=== PATIENT | female | born 1945 | race Caucasian/White ===

== ENCOUNTER 2021-01-13 18:53 | Emergency (ER) | payer MEDICARE, SELFPAY ==
[2021-01-13] VITALS (8 sets, daily range): BP systolic 154–175; BP diastolic 55–68; PULSE 83–93; RESP 18–22; TEMP 37.2; O2SAT 98–100
--- NOTE | ~2021-01-13 | XR_ITS ---
EXAMINATION: XR knee LT min 4V DATE: 01/13/2021 19:52 INDICATION: Left knee pain TECHNIQUE: Five views of the left knee were obtained. COMPARISON: None. FINDINGS: The bones are osteopenic which limits the sensitivity for fracture however none is seen. Th ere is moderate joint space narrowing of the medial compartment No joint effusion/synovitis. Calcifi ed atherosclerosis is noted. IMPRESSION: 1. No acute osseous abnormality, sensitivity limited by osteopenia. Reviewed, dictated and finalized at location A.
--- NOTE | ~2021-01-13 | CT_ITS ---
EXAMINATION: CT cervical spine wo con DATE: 01/14/2021 00:21 INDICATION: Head injury. TECHNIQUE: Computed tomography (CT) of the cervical spine was performed without intravenous contrast. Automated exposure control and iterative reconstruction technique were employed. The dose-length pro duct was 344.15 mGy-cm. COMPARISON: None FINDINGS: There is 3 degrees levocurvature of cervical spine. Vertebral body heights and intervertebr al disc heights are normal. There is a small right pleural effusion versus pleural thickening. The fo llowing disc levels are specifically discussed: C2-C3: There is no uncovertebral joint osteoarthritis. There is mild right and severe left facet join t osteoarthritis. There is no neural foraminal stenosis. There is no central canal stenosis. C3-C4: There is no uncovertebral joint osteoarthritis. There is mild right and moderate left facet azucena int osteoarthritis. There is no neural foraminal stenosis. There is no central canal stenosis. C4-C5: There is no uncovertebral joint osteoarthritis. There is moderate right facet joint osteoarthr itis. There is no neural foraminal stenosis. There is no central canal stenosis. C5-C6: There is no uncovertebral joint osteoarthritis. There is severe right facet joint osteoarthrit is. There is no neural foraminal stenosis. There is no central canal stenosis. C6-C7: There is no uncovertebral joint osteoarthritis. There is mild right facet joint osteoarthritis . There is no neural foraminal stenosis. There is no central canal stenosis. C7-T1: There is no uncovertebral joint osteoarthritis. There is mild bilateral facet joint osteoarthr itis. There is no neural foraminal stenosis. There is no central canal stenosis. IMPRESSION: 1. No fracture. 2. Multilevel facet joint osteoarthritis. Reviewed, dictated and finalized at location A.
--- NOTE | ~2021-01-13 | XR_ITS ---
EXAMINATION: XR chest 1V portable INDICATION: Cough TECHNIQUE: Portable AP chest at 2305 hours COMPARISON: None available FINDINGS: There are opacities of the mid and lower lung zones. No pleural effusion or pneumothorax is identified. The heart size is upper limits of normal for technique. Internal stabilization hardware is present in the proximal left humerus. IMPRESSION: 1. Opacities of the mid and lower lung zones which could reflect atelectasis/scarring versus pneumoni a. Recommend followup radiographs in 10-14 days after appropriate therapy to evaluate for improvement /resolution. Reviewed, dictated and finalized at location A. IMPRESSION: 1. Opacities of the mid and lower lung zones which could reflect atelectasis/sc arring versus pneumonia. Recommend followup radiographs in 10-14 days after joey ropriate therapy to evaluate for improvement/resolution.
--- NOTE | ~2021-01-13 | CT_ITS ---
EXAMINATION: CT brain wo con DATE: 01/14/2021 00:20 INDICATION: Head injury. TECHNIQUE: Computed tomography (CT) of the head was performed without intravenous contrast. The mA wa s adjusted according to patient size. Iterative reconstruction technique was employed. The dose-lengt h product was 605.33 mGy-cm. COMPARISON: None FINDINGS: There is an old infarct in right frontal lobe. There is an old infarct in left caudate nucl eus. There are scattered areas of low attenuation in the cerebral white matter, which is within rajendra l limits for the patient's age. There is no intracranial hemorrhage, acute infarction, or abnormal i ntracranial mass lesion. The ventricles are normal in size. There are likely changes of left ocular l ens replacement surgery. The paranasal sinuses are clear. The mastoid air cells are normal. IMPRESSION: 1. 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 Reviewed, dictated and finalized at location A.
--- NOTE | 2021-01-13 23:06 | ED.GENADULT ---
HPI - General Adult General Chief complaint: Fall Stated complaint: fall/head injury Time Seen by Provider: 01/13/21 22:50 Source: patient History of Present Illness HPI narrative: Patient is a 75 y/o female sent from [place] for a fall. She states that she attempted to push a dinner tray away and fell forward on her knees. She has some mild left knee pain. There no alleviating or exacerbating factor. There is no pain radiation. She also hit her head on the bed. She has no headache or LOC. She has no neck pain, back pain or abdominal pain. Of note, she states that she has had a dry cough for 2 weeks. She states that she was tested for COVID recently and the result was negative. Review of Systems Constitutional: Constitutional: Denies chills, Denies fever(s), Denies headache(s) and Denies weakness Eyes: Eyes: Denies blurry vision ENT: Denies headache(s) and Denies neck pain Cardiovascular: Cardiovascular: Denies chest pain and Denies dyspnea Respiratory: Respiratory: Reports cough and Denies dyspnea Gastrointestinal: Gastrointestinal: Denies abdominal pain, Denies diarrhea, Denies nausea and Denies vomiting Genitourinary: Genitourinary: Denies hematuria and Denies dysuria Musculoskeletal: Musculoskeletal: Reports as per HPI, Denies back pain, Reports arthralgias (left knee pain) and Denies neck pain Neurologic: Denies headache(s) and Denies weakness Exam Const: General: no acute distress and well developed Orientation/consciousness: oriented to person, oriented to place, oriented to time and patient oriented x3 HENMT: Head: normocephalic Ears: external ears normal General nose exam: Normal external nose present Eyes: General: appearance normal, both eyes and all related structures Conjunctivae: conjunctivae normal Neck: Neck: normal visual inspection and full ROM Chest: Chest palpation & inspection: normal inspection of the chest and no tenderness Resp: Effort & Inspection: normal respiratory effort Auscultation: clear to auscultation bilaterally Cardio: Rate: regular rate Rhythm: regular rhythm GI: GI Palp: No abdominal tenderness and Yes Soft to palpation Skin: General skin exam: normal color and turgor normal Neuro: General: oriented to person, oriented to place, oriented to time and patient oriented x3 Cognition (Neuro): normal cognition Extrem: General: normal to inspection, full ROM and no pedal edema Psych: Appearance: grossly normal Mental Status: mental status grossly normal Affect: normal affect Course Reevaluation(s) Reevaluation #1: Discussed with patient about lab and rad results. 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 Offered patient admission for IV antibiotics for pneumonia. Patient declines and wants to be discharged. Date: 01/14/21 Time: 01:23 Vital Signs Vital signs: Vital Signs Temperature 37.2 C 01/13/21 19:15 Pulse Rate 92 01/13/21 19:15 Respiratory Rate 20 01/13/21 19:15 Blood Pressure 175/64 H 01/13/21 19:15 Pulse Oximetry 99 01/13/21 19:15 Temperature 37.2 C 01/13/21 19:15 Pulse Rate 81 01/14/21 00:45 Respiratory Rate 20 01/14/21 00:45 Blood Pressure 155/54 H 01/14/21 00:45 Pulse Oximetry 99 01/14/21 00:45 Medical Decision Making Vital Signs Vital Signs: Vital Signs Temperature 37.2 C 01/13/21 19:15 Pulse Rate 92 01/13/21 19:15 Respiratory Rate 20 01/13/21 19:15 Blood Pressure 175/64 H 01/13/21 19:15 Pulse Oximetry 99 01/13/21 19:15 Temperature 37.2 C 01/13/21 19:15 Pulse Rate 81 01/14/21 00:45 Respiratory Rate 20 01/14/21 00:45 Blood Pressure 155/54 H 01/14/21 00:45 Pulse Oximetry 99 01/14/21 00:45 Lab Data Result diagrams: 01/13/21 23:24 01/13/21 23:24 Labs: Lab Results 01/13/21 01/13/21 Range/Units 23:24 23:24 WBC 19.5 H (4.5-10.0) K/mm3 RBC 3.46 L (4.2-5.4) M/mm3 Hgb 9.5 L (12.0-15.0) g/dL Hct 30.9 L (37.0-47.0) % MCV
[2021-01-13 23:32] LABS: Basophils Absolute Auto 0.1 K/mm3 (0.0-0.1); Basophils Percent Auto 0.3 % (0.2-1.2); Eosinophils Absolute Auto 0.1 K/mm3 (0-0.3); Eosinophils Percent Auto 0.7 % (0-4.4); Hematocrit 30.9 % (37.0-47.0); Hemoglobin 9.5 g/dL (12.0-15.0); Immature Granulocyte Absolute 0.07 K/mm3 (0.00-0.031); Immature Granulocyte Percent A 0.4 % (0-0.5); Lymphocytes Absolute Auto 14.38 K/mm3 (0.9-3.2); Lymphocytes Percent Auto 73.6 % (18.3-44.2); Mean Corpuscular HGB Conc 30.7 g/dl (32-36); Mean Corpuscular Hemoglobin 27.5 pg (26-34); Mean Corpuscular Volume 89.3 fl (80-100); Mean Platelet Volume 9.5 fl (7.4-10.4); Monocytes Absolute Auto 0.7 K/mm3 (0.1-0.6); Monocytes Percent Auto 3.4 % (2.6-8.5); Neutrophils Absolute Auto 4.2 K/mm3 (1.3-6.7); Neutrophils Percent Auto 21.6 % (45.5-73.1); Platelet Count Result 328 k/mm3 (150-375); Red Blood Count 3.46 M/mm3 (4.2-5.4); Red Cell Distribution Width 17.6 % (11.5-14.5); White Blood Count 19.5 K/mm3 (4.5-10.0)
[2021-01-13 23:44] LABS: Alanine Aminotransferase 11 U/L (4-35); Albumin Level 3.2 g/dL (3.5-5.1); Alkaline Phosphatase 115 U/L (38-126); Anion Gap 3 mmol/L (8-16); Aspartate Amino Transferase 20 U/L (14-36); Bilirubin,Total 0.4 mg/dL (0.2-1.3); Blood Urea Nitrogen 12 mg/dL (7-17); Calcium 8.3 mg/dL (8.4-10.2); Carbon Dioxide 27 mmol/L (22-30); Chloride 99 mmol/L (98-107); Estimated CRCL calculation 45 ml/min; Estimated Glomerular Filt Rate 54; Glucose 148 mg/dL (65-110); Potassium 4.7 mmol/L (3.4-5.0); Sodium 129 mmol/L (137-145)
[2021-01-14 00:19] VITALS: RESP 21; O2SAT 96
[2021-01-14 00:30] VITALS: O2SAT 98
[2021-01-14 00:45] VITALS: BP 155/54; PULSE 81; RESP 20; O2SAT 99
--- NOTE | 2021-01-14 01:59 | PC.NURSE ---
called [facility] to request transport. ETA one hour.
[2021-01-14 03:14] VITALS: BP 154/78; PULSE 74; RESP 18; O2SAT 99
== END 2021-01-14 04:56 ==
PROVIDERS: Emergency Provider Emergency Medicine
DX: M25.562 Pain in left knee (principal); J18.9 Pneumonia, unspecified organism; W19.XXXA Unspecified fall, initial encounter; C91.10 Chronic lymphocytic leukemia of B-cell type not having achieved remission; M85.862 Other specified disorders of bone density and structure, left lower leg; M47.812 Spondylosis without myelopathy or radiculopathy, cervical region
CPT/HCPCS: 36415; 70450; 71045; 72125; 73564; 80053; 85025; 99284

== ENCOUNTER 2023-01-09 05:57 | Inpatient (IN) | payer MEDICARE, SELFPAY ==
[2023-01-09] VITALS (38 sets, daily range): BP systolic 120–208; BP diastolic 51–86; PULSE 80–96; RESP 16–28; TEMP 36.4–36.8; O2SAT 94–100; BMI 29.2
--- NOTE | ~2023-01-09 | XR_ITS ---
EXAMINATION: XR chest 1V portable DATE: 01/10/2023 08:07 INDICATION: Airspace opacities. TECHNIQUE: A single frontal view of the chest was obtained. COMPARISON: Chest single view 01/09/2023 FINDINGS: There are peripheral airspace opacities in the mid and lower lung zones. No pleural effusio n or pneumothorax. The heart size is normal. There is plate and screw fixation of left humerus. IMPRESSION: 1. Stable airspace opacities in the mid and lower lung zones, likely at least predominantly chronic l arnold disease. Pneumonia cannot be excluded. Reviewed, dictated and finalized at location E. IMPRESSION: 1. Stable airspace opacities in the mid and lower lung zones, likely at least p redominantly chronic lung disease. Pneumonia cannot be excluded.
--- NOTE | ~2023-01-09 | XR_ITS ---
EXAMINATION: XR chest 2V DATE: 01/09/2023 06:37 INDICATION: Chest pain. TECHNIQUE: Frontal and lateral views of the chest were obtained. COMPARISON: Chest single view 01/13/2021 FINDINGS: There are airspace opacities in the mid and lower lung zones with a peripheral predominance . No pleural effusion or pneumothorax. The heart size is normal. Surgical clips in the right upper qu adrant are likely from cholecystectomy. There is fixation of left humerus. IMPRESSION: 1. Airspace opacities in the mid and lower lung zones with a peripheral predominance with mild improv ement on the right, likely chronic lung disease. Pneumonia cannot be excluded. Reviewed, dictated and finalized at location E. IMPRESSION: 1. Airspace opacities in the mid and lower lung zones with a peripheral predomi nance with mild improvement on the right, likely chronic lung disease. Pneumoni a cannot be excluded.
--- NOTE | 2023-01-09 06:07 | ECG_ITS ---
Measurements Intervals [place] Rate: 87 P: 32 VA: 168 QRS: 9 QRSD: 98 T: 46 QT: 379 QTc: 456 Interpretive Statements SINUS RHYTHM NONSPECIFIC ST SEGMENT ABNORMALITY Electronically Signed On 01-10-2023 12:51:47 CDT by Eric Zaragoza M.D.
[2023-01-09 06:15] LABS: Glucose Point of Care 341 mg/dl (65-105)
[2023-01-09 06:16] LABS: Basophils Percent Auto 0.2 % (0.2-1.2); Eosinophils Absolute Auto 0.1 K/mm3 (0-0.3); Eosinophils Percent Auto 0.6 % (0-4.4); Hematocrit 34.8 % (37.0-47.0); Hemoglobin 10.3 g/dL (12.0-15.0); Immature Granulocyte Absolute 0.03 K/mm3 (0.00-0.031); Immature Granulocyte Percent A 0.3 % (0-0.5); Lymphocytes Absolute Auto 7.87 K/mm3 (0.9-3.2); Lymphocytes Percent Auto 67.5 % (18.3-44.2); Mean Corpuscular HGB Conc 29.6 g/dl (32-36); Mean Corpuscular Hemoglobin 26.3 pg (26-34); Mean Corpuscular Volume 88.8 fl (80-100); Mean Platelet Volume 12.1 fl (7.4-10.4); Monocytes Absolute Auto 0.4 K/mm3 (0.1-0.6); Monocytes Percent Auto 3.1 % (2.6-8.5); Neutrophils Absolute Auto 3.3 K/mm3 (1.3-6.7); Neutrophils Percent Auto 28.3 % (45.5-73.1); Platelet Count Result 140 k/mm3 (150-375); Red Blood Count 3.92 M/mm3 (4.2-5.4); Red Cell Distribution Width 18.6 % (11.5-14.5); White Blood Count 11.7 K/mm3 (4.5-10.0)
[2023-01-09 06:26] LABS: INR 1.1; Prothrombin Time 14.5 Seconds (11.1-14.7)
[2023-01-09 06:27] LABS: Partial Thromboplastin Time 28.6 SECONDS (22.3-36.8)
[2023-01-09 06:28] LABS: Alanine Aminotransferase 12 U/L (6-35); Albumin Level 4.1 g/dL (3.5-5.1); Alkaline Phosphatase 176 U/L (38-126); Anion Gap 11 mmol/L (8-16); Aspartate Amino Transferase 21 U/L (14-36); Bilirubin,Total 0.6 mg/dL (0.2-1.3); Blood Urea Nitrogen 48 mg/dL (7-17); Calcium 8.5 mg/dL (8.4-10.2); Carbon Dioxide 19 mmol/L (22-30); Chloride 109 mmol/L (98-107); Estimated CRCL calculation 25 ml/min; Estimated Glomerular Filt Rate 29; Glucose 334 mg/dL (65-110); Lipase 59 U/L (23-300); Potassium 4.3 mmol/L (3.4-5.0); Sodium 139 mmol/L (137-145)
[2023-01-09 06:40] LABS: Troponin I 0.033 ng/mL (0.000-0.034)
[2023-01-09 06:42] LABS: Anisocytosis 1+ (NORMAL); Burr Cells 1+ (NORMAL); Hypochromasia 1+ (NORMAL); Ovalocytes 1+ (NORMAL); Schistocytes None Seen (NORMAL)
--- NOTE | 2023-01-09 08:29 | ED.CHESTPAIN ---
HPI - Chest Pain General Chief Complaint: Chest Pain Stated Complaint: cp Time Seen by Provider: 01/09/23 07:33 History of Present Illness HPI narrative: 77-year-old female presents emergency department for evaluation of intermittent chest pain. Patient does have a history of diabetes and coronary disease. Patient does have [address] Patient does have close follow-up with cardiology at [place]. Patient had short lasting left-sided chest pain last night that woke her from sleep. Patient states the pain was short lasting and occurred every few minutes for approximately 30 minutes. Patient reports when she sat up the symptoms resolved. Patient has had symptoms similar to this previously and has discussed it with cardiology. Patient was treated with 4 baby aspirin by EMS. Related Data Allergies Allergy/AdvReac Type Severity Reaction Status Date / Time No Known Allergies Allergy Verified 01/09/23 06:06 Review of Systems Review of Systems: All systems reviewed & are unremarkable except as noted in HPI and below Exam Narrative: APPEARANCE: Well appearing, no pain, no distress, well-nourished. HEAD: normocephalic, atraumatic. EYES: PERRLA/EOMI, conjunctivae clear. NOSE: Normal no drainage EARS:TMS clear with good light reflex. THROAT: Pharynx clear, no exudate. NECK: Supple. No adenopathy, no masses. RESPIRATORY: Airway patent, respirations nonlabored. Clear to auscultation bilaterally, no rales, rhonchi, wheezing. CARDIOVASCULAR: Regular rate and rhythm without murmurs rubs or gallops. ABDOMINAL: Soft, nontender, nondistended, normal bowel sounds MUSCULOSKELETAL: Moves all extremities. Strength/ROM intact, No edema, No calf tenderness. NEURO: Alert. Cranial nerves II through XII intact. Grossly intact SKIN: Warm, dry. Normal Color Course Course Emergency Course: 77-year-old female present to the emergency department for evaluation of chest pain. Patient was afebrile but does have a leukocytosis of 11.7. Patient does have a mild JUAN ANTONIO compared to her baseline and patient was treated with IV fluids. Patient did not take her diabetic medication last night and patient was treated with IV insulin. Patient's repeat troponin was elevated. Case was discussed with cardiology and patient was admitted for NSTEMI. Patient was started on Lovenox. Case discussed with hospitalist patient was accepted to the IMU. Patient and family are updated the results of the work-up and plan for admission. All questions and concerns were addressed. Patient was well-appearing and pain-free at time of admission to the IMU Vital Signs Vital signs: Vital Signs Temperature 98.3 F 01/09/23 05:58 Pulse Rate 87 01/09/23 05:58 Respiratory Rate 23 H 01/09/23 05:58 Blood Pressure 208/86 H 01/09/23 05:58 Pulse Oximetry 94 01/09/23 05:58 Oxygen Delivery Room Air 01/09/23 05:58 Temperature 97.6 F 01/09/23 13:27 Pulse Rate 96 01/09/23 17:17 Respiratory Rate 20 01/09/23 17:17 Blood Pressure 199/84 H 01/09/23 17:17 Pulse Oximetry 97 01/09/23 17:17 Oxygen Delivery Room Air 01/09/23 17:17 MDM - Chest Pain Lab Data 01/09/23 06:09 01/09/23 06:09 Labs: Lab Results 01/09/23 01/09/23 01/09/23 Range/Units 06:09 06:10 08:35 WBC 11.7 H (4.5-10.0) K/mm3 RBC 3.92 L (4.2-5.4) M/mm3 Hgb 10.3 L (12.0-15.0) g/dL Hct 34.8 L (37.0-47.0) % MCV 88.8 (80-100) fl MCH 26.3 (26-34) pg MCHC 29.6 L (32-36) g/dl RDW 18.6 H (11.5-14.5) % Plt Count 140 L D (150-375) k/mm3 MPV 12.1 H (7.4-10.4) fl Immature Gran % (Auto) 0.3 (0-0.5) % Neut % (Auto) 28.3 L (45.5-73.1) % Lymph % (Auto) 67.5 H (18.3-44.2) % Gray % (Auto) 3.1 (2.6-8.5) % Eos % (Auto) 0.6 (0-4.4) % Baso % (Auto) 0.2 (0.2-1.2) % Lymph # (Auto) 7.87 H (0.9-3.2) K/mm3 Gray # (Auto) 0.4 (0.1-0.6) K/mm3 Eos # (Auto) 0.1 (0-0.3) K/mm3 B
[2023-01-09 08:37] LABS: Glucose Point of Care 389 mg/dl (65-105)
[2023-01-09] MEDS: PANTOPRAZOLE SODIUM IV 40 MG VIAL IV PUSH (08:50)
[2023-01-09] MEDS: SODIUM CHLORIDE 0.9% IV 500 ML 999 ML IV CONT (08:50)
[2023-01-09] MEDS: hydrALAZINE HCL 20 MG/ML VIAL 10 MG IV PUSH ×2 (08:50→19:17)
[2023-01-09] MEDS: INSULIN HUMAN REGULAR (*BKC) 100 UNITS/ML IV PUSH ×2 (08:51→11:44)
[2023-01-09] MEDS: carvediloL 25 MG TABLET PO (09:17)
[2023-01-09 09:48] LABS: Troponin I 0.327 ng/mL (0.000-0.034)
--- NOTE | 2023-01-09 10:22 | ECG_ITS ---
Measurements Intervals [place] Rate: 85 P: 42 VA: 164 QRS: 10 QRSD: 101 T: 48 QT: 390 QTc: 466 Interpretive Statements SINUS RHYTHM [address] SEGMENT ABNORMALITY SUGGEST ISCHEMIA Electronically Signed On 01-10-2023 12:53:27 CDT by Eric Zaragoza M.D.
[2023-01-09] MEDS: NITROGLYCERIN OINTMENT 1 INCH DOSE TRANSDERM (10:42)
[2023-01-09 10:56] LABS: Cholesterol 129 mg/dL (0-200); HDL Direct 50 mg/dL; Triglycerides 83 mg/dL (<150)
[2023-01-09 11:07] LABS: LDL Cholesterol Direct 63 mg/dL
[2023-01-09 11:38] LABS: Glucose Point of Care 419 mg/dl (65-105)
--- NOTE | 2023-01-09 12:05 | PM.IMHP ---
H&P: HPI History of Present Illness Date/Time: 01/09/23 12:05 Chief Complaint: Chest pain Narrative: 75 years old lady with history of CAD, status post stent, hypertension, diabetes, present ED with a chief complaint of chest pain. Patient started have chest pain last night, locating left chest, lasts about 30 minutes. Since then patient has intermittent chest pain, patient has some shortness breath. Patient has a mild cough. Denies fever, chills, abdomen pain, nausea vomiting diarrhea. But patient had diarrhea about 3 days ago. Patient has worsening cough is possibly more days, with scant phlegm. EMS was called, patient was brought to ED for evaluation. In the ED, patient was found have uncontrolled blood pressure, 187/75, tachycardia, tachypnea, patient received labetalol IV push in the ED. in the ED, patient was also found to have elevated BUN creatinine 48/1.7 above baseline 12.1 double found 2020, no recent creatinine level for comparison, uncontrolled diabetes glucose 334, elevated troponin 0.327, mild leukocytosis 11,700, chronic anemia hemoglobin 10.3, baseline 9.31 December 2020. Chest x-rays suggest possible pneumonia with airspace opacity in mid lower lobe zone. EKG showed sinus rhythm I stated depression V4 to V5. ER physician consulted the trimmer buffing wheel, cardiology recommended to start therapeutic dose Lovenox to evening of Wednesday, plans cardiac catheterization Wednesday morning Review of Systems Review of Systems: ROS negative except above Meds Home Medications and Allergies Home Medications Medication Instructions Recorded Confirmed Type azithromycin 250 mg tablet See Rx Instructions PO .COMPLEX #6 01/14/21 Rx (Zithromax Z-Satinder) tabs Allergies Allergy/AdvReac Type Severity Reaction Status Date / Time No Known Allergies Allergy Verified 01/09/23 06:06 Vital Signs Vital Signs - 24 hr 01/09/23 05:58 01/09/23 06:03 01/09/23 07:24 Temperature 98.3 F Pulse Rate 87 82 Respiratory Rate 23 H 23 H Blood Pressure 208/86 H 192/72 H Pulse Oximetry 94 94 95 Oxygen Delivery Room Air Room Air 01/09/23 07:25 01/09/23 07:30 01/09/23 07:31 Temperature Pulse Rate 82 82 82 Respiratory Rate 23 H 21 H 24 H Blood Pressure 178/69 H Pulse Oximetry 95 94 94 Oxygen Delivery 01/09/23 08:12 01/09/23 09:17 01/09/23 08:17 Temperature Pulse Rate 83 94 83 Respiratory Rate 23 H 24 H Blood Pressure Pulse Oximetry 94 97 Oxygen Delivery 01/09/23 08:25 01/09/23 08:30 01/09/23 08:32 Temperature Pulse Rate 83 80 89 Respiratory Rate 27 H 26 H 19 Blood Pressure 188/80 H 190/75 H Pulse Oximetry 97 94 100 Oxygen Delivery 01/09/23 08:45 01/09/23 08:46 01/09/23 09:04 Temperature Pulse Rate 85 83 88 Respiratory Rate 23 H 26 H 26 H Blood Pressure 180/75 H Pulse Oximetry 97 94 97 Oxygen Delivery 01/09/23 09:15 01/09/23 09:31 01/09/23 09:32 Temperature Pulse Rate 85 89 86 Respiratory Rate 21 H 19 21 H Blood Pressure 184/69 H Pulse Oximetry 97 96 96 Oxygen Delivery 01/09/23 09:45 01/09/23 09:46 01/09/23 10:11 Temperature Pulse Rate 86 87 86 Respiratory Rate 22 H 18 20 Blood Pressure 183/72 H Pulse Oximetry 95 96 95 Oxygen Delivery 01/09/23 10:15 01/09/23 10:16 01/09/23 10:38 Temperature Pulse Rate 86 87 87 Respiratory Rate 22 H 23 H 22 H Blood Pressure 185/71 H Pulse Oximetry 94 94 94 Oxygen Delivery 01/09/23 10:45 01/09/23 10:46 01/09/23 11:02 Temperature Pulse Rate 90 90 86 Respiratory Rate 26 H 20 23 H Blood Pressure 176/82 H Pulse Oximetry Oxygen Delivery 01/09/23 11:16 01/09/23 11:17 01/09/23 11:31 Temperature Pulse Rate 87 87 86 Respiratory Rate 23 H 24 H 26 H Blood Pressure 187/75 H 173/80 H Pulse Oximetry Oxygen Delivery Exam Narrative: GENERAL: Pleasant, in no acute distress. Well-nourished. - EYES: EOMI. Anicteric. - HENT: Moist mucous membranes. - ARY
--- NOTE | 2023-01-09 12:21 | ECHO_ITS ---
Patient Info Name: Shagufta Oakley Age: 77 years : 1945 Gender: Female Ht: 63 in Wt: 165 lbs BSA: 1.85 m2 HR: 86 bpm BP: 173 / 80 mmHg Heart Rhythm: Sinus Rhythm Technical Quality: Good Exam Date: 01/09/2023 2:25 PM Exam Location: [facility] Pulmonary Patient Status: Inpatient Admit Date: 01/09/2023 Staff Ordering Physician: Waylon Bledsoe MD Power Tool Repairer: Gerson Garcia RDCS Attending Provider: Waylon Bledsoe MD Exam Type: CA echo dop color flow w con Study Info Indications - NSTMI Complete two-dimensional, color flow and Doppler transthoracic echocardiogram is performed with contrast to opacify the left ventricle and to improve the deliniation of the left ventricle endocardial borders. Contrast/Agitated Saline Contrast/Ag. Saline: Definity Amount: 3.00 ml Summary 1. Echo contrast was used. Normal LV size, moderate LVH, normal LV systolic function, EF 60-65%, grade 1 diastolic dysfunction. Mild left atrial enlargement. Dense mitral annular calcification, trivial MR, no significant stenosis. Aortic valve is mildly calcified, mild aortic stenosis, maximum velocity 1.8 m/sec, mean gradient 10 mmHg, BETHEL 1.7 cm2. Mild TR, moderate pulmonary hypertension, RVSP 51 mmHg. Left Ventricle Left ventricular chamber dimension is normal. Left ventricular systolic function is normal, estimated at 65-70%. There is moderately increased left ventricular wall thickness. The left ventricular diastolic function is grade I diastolic dysfunction. Right Ventricle Right ventricular chamber dimension is normal. Right ventricular systolic function is normal. Left Atria Left atrial chamber dimension is mildly enlarged. Right Atria Right atrial chamber dimension is normal. Aortic Valve There is mild aortic valve stenosis with a peak velocity of 185.02 cm/s, mean gradient of 10 mmHg, and aortic valve area of 2.03 cm2. There is mild aortic valve calcification. Pulmonic Valve The pulmonic valve is not well visualized. Mitral Valve There is trace mitral valve regurgitation. There is severe mitral valve calcification. Tricuspid Valve The tricuspid valve leaflets are normal. There is mild tricuspid valve regurgitation. Moderate pulmonary hypertension, estimated pulmonary arterial systolic pressure is 51 mmHg. Pericardium/Pleural The pericardium appears epicardial fat pad. Aorta The aortic root size at the sinus of Valsalva is normal. Left Ventricular Outflow Tract Name Value Normal LVOT 2D LVOT Diameter 1.89 cm LVOT Doppler LVOT Peak Gradient 4 mmHg LVOT Mean Gradient 2 mmHg LVOT VTI 31.24 cm LVOT VTI/AV VTI Ratio 0.72 LVOT Stroke Volume 87.87 ml LVOT CO 6.76 l/min LVOT CI 3.66 L/min/m2 Pulmonic Valve Name Value Normal RVOT Doppler
[2023-01-09 13:56] LABS: Cholesterol 130 mg/dL (0-200); HDL Direct 50 mg/dL; Triglycerides 75 mg/dL (<150)
[2023-01-09 14:06] LABS: LDL Cholesterol Direct 60 mg/dL
[2023-01-09] MEDS: PERFLUTREN LIPID MICROSPHERES 1.5 ML VIAL DILUTED TO 10 ML TOTAL VOLUME IV PUSH (14:40)
[2023-01-09] MEDS: SODIUM CHLORIDE 0.9% IV 1,000 ML 100 ML IV CONT (15:55)
[2023-01-09] MEDS: cefTRIAXone 2 GM/NS 100 ML 2 GM/100 ML BAG IVPB (15:56)
[2023-01-09] MEDS: INSULIN GLARGINE (*BKC) 100 UNITS/ML 7 UNITS SUB-Q (15:56)
[2023-01-09] MEDS: ENOXAPARIN 80 MG/0.8 ML SYRINGE 75 MG SUB-Q (15:56)
[2023-01-09] MEDS: DOXYCYCLINE HYCLATE 100 MG TABLET PO ×2 (15:57→21:56)
--- NOTE | 2023-01-09 16:17 | ADMGEN ---
This patient, Shagufta Oakley, was admitted to IMU Room 205-02 at 1307. Patient/family oriented to hospital policies and general routines including ID bracelet, bed and alarms, visiting hours, pain management, procedures, bathroom and other care routines, personal items, smoking policy, room service/diet, and visiting hours. Information on how to activate the Rapid Response Team has been discussed. Patient/Family are encouraged to report perceived risks to care and to ask questions if they do not understand what they are told or what they should do.
--- NOTE | 2023-01-09 17:23 | WPDPN ---
Subjective Date/time seen: 01/09/23 17:23 Interval history: Rapid response was called. Upon arriving at the room, patient was sitting the stool. She was alert and oriented. Systolic blood pressure was 199. Glucose was 400. She had walked to the bathroom. She felt a little lightheaded but no chest pain. When she sat on the stool she developed lightheadedness. She does not believe that she had a syncopal episode. She was nauseous with vomiting. Telemetry at the time showed a 7 second pause. Patient had similar symptoms over a year ago but nothing recent. She was returned to bed. No acute respiratory distress. Bibasilar inspiratory crackles otherwise clear. Heart was regular rate and rhythm. Abdomen is soft benign extremities show no edema. Neuro was nonfocal. Suspect patient with vasovagal episode. Consider ischemia to the conduction system resulting cardiac pause but nothing else on tele. Continue to monitor patient in IMU on telemetry. Stop Zofran and Coreg. Repeat EKG. Cardiolgoy informed Objective Data Vital Signs Vital Signs: Vital Signs - 24 hr 01/09/23 05:58 01/09/23 06:03 01/09/23 07:24 Temperature 98.3 F Pulse Rate 87 82 Respiratory Rate 23 H 23 H Blood Pressure 208/86 H 192/72 H Pulse Oximetry 94 94 95 Oxygen Delivery Room Air Room Air 01/09/23 07:25 01/09/23 07:30 01/09/23 07:31 Temperature Pulse Rate 82 82 82 Respiratory Rate 23 H 21 H 24 H Blood Pressure 178/69 H Pulse Oximetry 95 94 94 Oxygen Delivery 01/09/23 08:12 01/09/23 09:17 01/09/23 08:17 Temperature Pulse Rate 83 94 83 Respiratory Rate 23 H 24 H Blood Pressure Pulse Oximetry 94 97 Oxygen Delivery 01/09/23 08:25 01/09/23 08:30 01/09/23 08:32 Temperature Pulse Rate 83 80 89 Respiratory Rate 27 H 26 H 19 Blood Pressure 188/80 H 190/75 H Pulse Oximetry 97 94 100 Oxygen Delivery 01/09/23 08:45 01/09/23 08:46 01/09/23 09:04 Temperature Pulse Rate 85 83 88 Respiratory Rate 23 H 26 H 26 H Blood Pressure 180/75 H Pulse Oximetry 97 94 97 Oxygen Delivery 01/09/23 09:15 01/09/23 09:31 01/09/23 09:32 Temperature Pulse Rate 85 89 86 Respiratory Rate 21 H 19 21 H Blood Pressure 184/69 H Pulse Oximetry 97 96 96 Oxygen Delivery 01/09/23 09:45 01/09/23 09:46 01/09/23 10:11 Temperature Pulse Rate 86 87 86 Respiratory Rate 22 H 18 20 Blood Pressure 183/72 H Pulse Oximetry 95 96 95 Oxygen Delivery 01/09/23 10:15 01/09/23 10:16 01/09/23 10:38 Temperature Pulse Rate 86 87 87 Respiratory Rate 22 H 23 H 22 H Blood Pressure 185/71 H Pulse Oximetry 94 94 94 Oxygen Delivery 01/09/23 10:45 01/09/23 10:46 01/09/23 11:02 Temperature Pulse Rate 90 90 86 Respiratory Rate 26 H 20 23 H Blood Pressure 176/82 H Pulse Oximetry Oxygen Delivery 01/09/23 11:16 01/09/23 11:17 01/09/23 11:31 Temperature Pulse Rate 87 87 86 Respiratory Rate 23 H 24 H 26 H Blood Pressure 187/75 H 173/80 H Pulse Oximetry Oxygen Delivery 01/09/23 11:38 01/09/23 12:31 01/09/23 13:27 Temperature 97.6 F Pulse Rate 94 89 88 Respiratory Rate 28 H 23 H 16 Blood Pressure 152/73 H 168/63 H Pulse Oximetry 97 Oxygen Delivery 01/09/23 17:17 Temperature Pulse Rate 96 Respiratory Rate 20 Blood Pressure 199/84 H Pulse Oximetry 97 Oxygen Delivery Room Air Intake/Output Intake/Output: Intake & Output 01/06/23 01/07/23 01/08/23 01/09/23 23:59 23:59 23:59 23:59 Intake Total 500 Balance 500 Meds/Results Medications: Active Medications Generic Name Dose Route Start Last Admin Trade Name Freq PRN Reason Stop Dose Admin Acetaminophen 650 mg 01/09/23 12:20 Acetaminophen 325 Mg Tablet PO Q6H PRN Mild Pain (1-3) or Fever Atorvastatin Calcium 40 mg 01/10/23 09:00 Atorvastatin 40 Mg Tablet PO DAILY DAVID Carvedilol 6.25 mg 01/09/23 21:00 Carvedilol 6.25 Mg Tablet PO Q12HR
[2023-01-09 17:28] LABS: Glucose Point of Care 404 mg/dl (65-105)
[2023-01-09] MEDS: INSULIN ASPART (*BKC) 100 UNITS/ML SUB-Q ×2 (18:23→18:24)
[2023-01-09] MEDS: ASPIRIN 81 MG CHEWABLE TABLET 162 MG PO (18:24)
[2023-01-09] MEDS: MORPHINE SULFATE (*CRX) 2 MG/ML INJ 1 MG IV PUSH (19:20)
[2023-01-09] MEDS: ONDANSETRON INJ 4 MG/2 ML VIAL 2 MG IV PUSH (19:20)
--- NOTE | 2023-01-09 19:21 | ECG_ITS ---
Measurements Intervals [place] Rate: 82 P: 38 [place]: 155 QRS: 0 QRSD: 101 T: 29 QT: 406 QTc: 476 Interpretive Statements SINUS RHYTHM COMPARED TO ECG 01/09/2023 10:36:49 NO SIGNIFICANT CHANGES Electronically Signed On 01-10-2023 12:57:16 CDT by Eric Zaragoza M.D.
[2023-01-09 19:29] LABS: Glucose Point of Care 319 mg/dl (65-105)
[2023-01-09 19:45] LABS: Basophils Percent Auto 0.2 % (0.2-1.2); Eosinophils Percent Auto 0.4 % (0-4.4); Hematocrit 31.7 % (37.0-47.0); Hemoglobin 9.5 g/dL (12.0-15.0); Immature Granulocyte Absolute 0.01 K/mm3 (0.00-0.031); Immature Granulocyte Percent A 0.1 % (0-0.5); Lymphocytes Absolute Auto 5.75 K/mm3 (0.9-3.2); Lymphocytes Percent Auto 58.3 % (18.3-44.2); Mean Corpuscular Hemoglobin 26.4 pg (26-34); Mean Corpuscular Volume 88.1 fl (80-100); Mean Platelet Volume 12.2 fl (7.4-10.4); Monocytes Absolute Auto 0.4 K/mm3 (0.1-0.6); Neutrophils Absolute Auto 3.7 K/mm3 (1.3-6.7); Platelet Count Result 131 k/mm3 (150-375); Red Cell Distribution Width 18.6 % (11.5-14.5); White Blood Count 9.9 K/mm3 (4.5-10.0)
[2023-01-09 19:54] LABS: Alanine Aminotransferase 14 U/L (6-35); Albumin Level 3.8 g/dL (3.5-5.1); Alkaline Phosphatase 164 U/L (38-126); Anion Gap 11 mmol/L (8-16); Aspartate Amino Transferase 31 U/L (14-36); Bilirubin,Total 0.5 mg/dL (0.2-1.3); Blood Urea Nitrogen 43 mg/dL (7-17); Calcium 8.3 mg/dL (8.4-10.2); Carbon Dioxide 19 mmol/L (22-30); Chloride 111 mmol/L (98-107); Estimated CRCL calculation 28 ml/min; Estimated Glomerular Filt Rate 34; Glucose 336 mg/dL (65-110); Potassium 3.7 mmol/L (3.4-5.0); Sodium 141 mmol/L (137-145)
[2023-01-09 20:04] LABS: Calcium 8.5 mg/dL (8.4-10.2); Phosphorus 2.5 mg/dL (2.5-4.5)
[2023-01-09 21:25] LABS: Glucose Point of Care 252 mg/dl (65-105)
[2023-01-09] MEDS: INSULIN GLARGINE (*BKC) 100 UNITS/ML SUB-Q (21:56)
[2023-01-09] MEDS: POTASSIUM CHLORIDE 20 MEQ ER TABLET PO (22:50)
--- NOTE | 2023-01-09 23:00 | PC.NURSE ---
1929 Bedside report received from Tuan Jenkins RN on patient's arrival to ICU. Pt transferred to ICU bed with defibrillator pads and monitor on.
[2023-01-10] VITALS (15 sets, daily range): BP systolic 134–164; BP diastolic 5–69; PULSE 73–82; RESP 18–25; TEMP 36.6–36.9; O2SAT 93–99
[2023-01-10] MEDS: SODIUM CHLORIDE 0.9% IV 1,000 ML 100 ML IV CONT (02:49)
[2023-01-10 03:21] LABS: Glucose Point of Care 241 mg/dl (65-105)
[2023-01-10 08:09] LABS: Basophils Percent Auto 0.2 % (0.2-1.2); Eosinophils Absolute Auto 0.1 K/mm3 (0-0.3); Eosinophils Percent Auto 0.7 % (0-4.4); Hematocrit 30.7 % (37.0-47.0); Hemoglobin 9.1 g/dL (12.0-15.0); Immature Granulocyte Absolute 0.02 K/mm3 (0.00-0.031); Immature Granulocyte Percent A 0.2 % (0-0.5); Lymphocytes Absolute Auto 6.31 K/mm3 (0.9-3.2); Lymphocytes Percent Auto 64.3 % (18.3-44.2); Mean Corpuscular HGB Conc 29.6 g/dl (32-36); Mean Corpuscular Hemoglobin 26.4 pg (26-34); Monocytes Absolute Auto 0.5 K/mm3 (0.1-0.6); Monocytes Percent Auto 4.8 % (2.6-8.5); Neutrophils Absolute Auto 2.9 K/mm3 (1.3-6.7); Neutrophils Percent Auto 29.8 % (45.5-73.1); Platelet Count Result 126 k/mm3 (150-375); Red Blood Count 3.45 M/mm3 (4.2-5.4); Red Cell Distribution Width 18.9 % (11.5-14.5); White Blood Count 9.8 K/mm3 (4.5-10.0)
--- NOTE | 2023-01-10 08:30 | PM.CNCAR ---
Assessment and Plan Assessment and plan (1) NSTEMI (non-ST elevated myocardial infarction): Code(s): I21.4 - Non-ST elevation (NSTEMI) myocardial infarction Status: Acute Assessment and Plan: 77-year-old female with past medical history of hypertension, diabetes mellitus on insulin. Patient presented to the hospital with chest pain that started yesterday associated with nausea and vomiting. EKG showed sinus rhythm, ST depression suggestive of ischemia. Troponins elevated consistent with non ST elevation VT. Last night, patient had episodes of nausea associated with sinus pauses. She was therefore transferred to ICU for observation. She has been stable overnight. -after discussing benefits, risks and alternatives, patient is willing to proceed with early invasive strategy with coronary angiogram with an eye towards intervention if necessary. Risks of the procedure include but are not limited to vascular complications, periprocedural VT, stroke, contrast induced nephropathy, . -standard treatment for non ST elevation VT will be initiated. - telemetry monitoring -additional recommendations will follow after cardiac catheterization is complete. History of Present Illness History of Present Illness Consult date/time: 01/10/23 08:30 Requesting physician: Conor Mcintosh MD Reason For Visit: NSTEMI Narrative: 77-year-old female with hypertension, diabetes mellitus on insulin, history of colon cancer. Patient presented to [facility] Emergency Room on 01/09/2023 with complaints of chest pain that started in the afternoon. Pain was substernal in location, nonradiating, lasted for about 2 hours. Her symptoms were associated with shortness of breath, dizziness, nausea and vomiting. Patient states that she has been experiencing cough with congestion for last few days. Denies any fever or chills. Denies any recent sick contacts. EKG on my personal interpretation showed sinus rhythm with ST depressions suggestive of ischemia. Patient's troponins are elevated with peak troponin level of 8.7 which is trending downwards, consistent with non ST elevation VT. she was given low-molecular weight heparin yesterday. Chest x-ray showed airspace opacities in the mid and lower lung zones with a peripheral predominance with mild improvement on the right, likely chronic lung disease. Pneumonia cannot be excluded. Last night, patient had episodes of sinus pauses, and was transferred to the ICU for observation. This morning, patient denies any ongoing symptoms of chest pain. Patient gives questionable history of what she describes as silent VT in the past. She does not recall any history of coronary interventions in the past. She is a nonsmoker, denies any excess alcohol illicit drugs. Review of Systems Review of Systems: General: Negative for fever, chills, fatigue Psychological: Negative for anxiety, depression Ophthalmic: negative for loss of vision ENT: Negative for epistaxis, headaches Allergy and immunology: Negative for hives, nasal congestion Hematologic and lymphatic: Negative for overt bleeding problems Endocrine: Negative for hot flashes, palpitations Respiratory: Negative for cough, hemoptysis Cardiovascular: Positive for chest pain Gastrointestinal: Positive for nausea and vomiting Musculoskeletal: Negative for myalgia, joint pains Neurological: Negative for weakness Dermatological: Negative for rash, skin discoloration PMFSH Past Medical History Medical History (Updated 01/10/23 @ 09:09 by Eric Zaragoza MD) Colon cancer Hypertension associated with diabetes Social History Social History Alcohol intake: never Substance use: never Lack of Transportation: No Lack of Food: Never True Current Housing: I Have Housing Concerned About Future Housing: No Difficulty Paying Gas/Electric Bills: No Difficulty Paying for Meds: No Cu
[2023-01-10 08:37] LABS: Potassium 3.8 mmol/L (3.4-5.0)
--- NOTE | 2023-01-10 08:41 | PM.IMPN ---
Progress Note: A&P Assessment and Plan (1) NSTEMI (non-ST elevated myocardial infarction): Code(s): I21.4 - Non-ST elevation (NSTEMI) myocardial infarction Status: Acute (2) Hypertensive urgency: Code(s): I16.0 - Hypertensive urgency Status: Acute (3) Acute renal failure: Code(s): N17.9 - Acute kidney failure, unspecified Status: Acute (4) Community acquired pneumonia due to influenza A virus: Code(s): J09.X1 - Influenza due to identified novel influenza A virus with pneumonia Status: Acute (5) Uncontrolled type 2 diabetes mellitus: Status: Acute (6) Sick sinus syndrome: Code(s): I49.5 - Sick sinus syndrome Status: Acute Plan NSTEMI Patient has history of CAD status post stents Patient has been having frequent chest pain since yesterday evening Elevated troponin, EKG shows sinus rhythm, ST depression V4 to V5 Therapeutic lovenox 1 milligram/kilos q.12 hour started ED, will continue therapeutic Lovenox until Wednesday evening Aspirin 325 mg once, aspirin 81 mg p.o. Telemetry monitoring Cardiac catheterization revealed multivessel disease today, patient is transferred to [facility] for bypass surgery Hypertension urgency Patient received labetalol in the ED Start losartan 25 mg daily p.o., carvedilol 6.25 mg b.i.d. p.o., hydralazine 10 mg IV push q.6 hours p.r.n. with parameters Optimize medication for better blood pressure control Acute renal failure Unclear etiology, possible due to uncontrolled hypertension and dehydration, patient had diarrhea about 3 days ago Start normal saline 100 mL/hour Follow-up BMP, urinalysis Uncontrolled type 2 diabetes Start Lantus 11 units q.h.s., aspart 4 units a.c. Sliding scale a.c. q.h.s. Community-acquired pneumonia Patient has been coughing possible days, with a scant phlegm X-ray shows multifocal pneumonia in right lungs Patient has a cough, leukocytosis Start doxycycline 100 mg q.12 hour, ceftriaxone 2 g IV daily O2 therapy p.r.n. Sick sinus 01/09?She felt a little lightheaded but no chest pain.? When she sat on the stool she developed lightheadedness.? She does not believe that she had a syncopal episode.? Telemetry at the time showed a 7 second pause. episodes of sinus pauses, hold BB and calcium channel georgina, Appreciate consult of managed care liaison Monitor patient in ICU ? Subjective Date/time seen: 01/10/23 08:41 Interval history: I saw and examined patient today. Patient had a long pause of 7 seconds yesterday. Cardiac is revealed multivessel disease. Patient denied chest pain, dizziness, shortness of breast, abdomen pain, focal weakness in the morning Exam Narrative: GENERAL: Pleasant, in no acute distress. Well-nourished. - EYES: EOMI. Anicteric. - HENT: Moist mucous membranes. - LUNGS: Clear to auscultation bilaterally, no wheezing, rhonchi, or rales. - CARDIOVASCULAR: Regular rate and rhythm. No murmur. No JVD. - ABDOMEN: Soft, non-tender and non-distended. No palpable masses. - EXTREMITIES: No edema. Peripheral pulses 2+. Non-tender. - NEUROLOGIC: No focal neurological deficits. CN II-XII grossly intact. - PSYCHIATRIC: Awake, Alert and oriented x 3. Appropriate mood and affect. - SKIN: No rashes or lesions. Warm. - LYMPH: No cervical lymphadenopathy. Objective Data Vital Signs Vital Signs: Vital Signs - 24 hr 01/09/23 09:17 01/09/23 08:45 01/09/23 08:46 Temperature Pulse Rate 94 85 83 Respiratory Rate 23 H 26 H Blood Pressure 180/75 H Pulse Oximetry 97 94 Oxygen Delivery 01/09/23 09:04 01/09/23 09:15 01/09/23 09:31 Temperature Pulse Rate 88 85 89 Respiratory Rate 26 H 21 H 19 Blood Pressure 184/69 H Pulse Oximetry 97 97 96 Oxygen Delivery 01/09/23 09:32 01/09/23 09:45 01/09/23 09:46 Temperature Pulse Rate 86 86 87 Respiratory Rate 21 H 22 H 18 Blood Pressure 183/72 H Pulse Oximetry 96 95 96 Oxygen Delivery 01/09/23 10:11
[2023-01-10 08:44] LABS: Alanine Aminotransferase 12 U/L (6-35); Albumin Level 3.4 g/dL (3.5-5.1); Alkaline Phosphatase 163 U/L (38-126); Anion Gap 11 mmol/L (8-16); Aspartate Amino Transferase 39 U/L (14-36); Bilirubin,Total 0.4 mg/dL (0.2-1.3); Blood Urea Nitrogen 42 mg/dL (7-17); Calcium 8.3 mg/dL (8.4-10.2); Carbon Dioxide 18 mmol/L (22-30); Chloride 116 mmol/L (98-107); Estimated CRCL calculation 28 ml/min; Estimated Glomerular Filt Rate 34; Glucose 242 mg/dL (65-110); Magnesium 2.1 mg/dL (1.6-2.3); Phosphorus 3.7 mg/dL (2.5-4.5); Sodium 145 mmol/L (137-145)
[2023-01-10] MEDS: LEVOTHYROXINE SODIUM 100 MCG TABLET PO (09:06)
[2023-01-10] MEDS: LOSARTAN POTASSIUM 25 MG TABLET PO (09:06)
[2023-01-10] MEDS: ASPIRIN 81 MG CHEWABLE TABLET PO (09:06)
[2023-01-10] MEDS: ATORVASTATIN 40 MG TABLET PO (09:06)
--- NOTE | 2023-01-10 09:26 | WPDMODSED ---
Moderate Sedation Note-Pt Data Patient Data Allergies Allergy/AdvReac Type Severity Reaction Status Date / Time No Known Allergies Allergy Verified 01/09/23 06:06 Home Medications Medication Instructions Recorded Confirmed Type aspirin 81 mg tablet,delayed 81 mg PO DAILY 01/09/23 01/09/23 History release atorvastatin 40 mg tablet 40 mg PO DAILY 01/09/23 01/09/23 History carvedilol 25 mg tablet 25 mg PO BID 01/09/23 01/09/23 History insulin glargine 100 unit/mL (3 5 unit subcut QHS 01/09/23 01/09/23 History mL) subcutaneous pen (Lantus Solostar U-100 Insulin) insulin glargine 100 unit/mL (3 7 unit subcut QAM 01/09/23 01/09/23 History mL) subcutaneous pen (Lantus Solostar U-100 Insulin) insulin lispro 100 unit/mL 5 unit subcut TIDWM 01/09/23 01/09/23 History subcutaneous pen levothyroxine 100 mcg tablet 100 mcg PO DAILY 01/09/23 01/09/23 History spironolactone 25 mg tablet 25 mg PO DAILY 01/09/23 01/09/23 History torsemide 20 mg tablet 20 mg PO DAILY 01/09/23 01/09/23 History Current Medications: Active Medications Acetaminophen (Acetaminophen 325 Mg Tablet) 650 mg PO Q6H PRN PRN Reason: Mild Pain (1-3) or Fever Aspirin (Aspirin 81 Mg Chewable Tablet) 81 mg PO DAILY@0800 [facility] Last Admin: 01/10/23 09:06 Dose: 81 mg Atorvastatin Calcium (Atorvastatin 40 Mg Tablet) 40 mg PO DAILY [facility] Last Admin: 01/10/23 09:06 Dose: 40 mg Carvedilol (Carvedilol 6.25 Mg Tablet) 6.25 mg PO Q12HR [facility] Dextrose (Dextrose 50% 25 Gm/50 Ml Syringe) 12.5 gm IV PUSH PRN PRN; Protocol PRN Reason: Hypoglycemia Doxycycline Hyclate (Doxycycline Hyclate 100 Mg Tablet) 100 mg PO Q12HR [facility] Last Admin: 01/09/23 21:56 Dose: 100 mg Glucagon (Glucagon For Inj 1 Mg Vial) 1 mg IM PRN PRN; Protocol PRN Reason: Hypoglycemia Glucose (Glucose Oral Gel 15 Gm Of Glucse In 37.5 Gm Tube) 15 gm PO PRN PRN; Protocol PRN Reason: Hypoglycemia Hydralazine HCl (Hydralazine Hcl 20 Mg/Ml Vial) 10 mg IV PUSH Q6H PRN PRN Reason: Blood Pressure - High Dextrose (Dextrose 5% 1,000 Ml) 1,000 mls @ 100 mls/hr IVPB PRN PRN; Protocol PRN Reason: Hypoglycemia Sodium Chloride (Normal Saline Iv) 1,000 mls @ 75 mls/hr IV CONT .[id number] [facility] Last Infusion: 01/10/23 09:12 Dose: 0 mls/hr Ceftriaxone Sodium (Rocephin 2 Gm/Ns 100 Ml) 2 gm in 100 mls @ 200 mls/hr IVPB QAM [facility] Last Admin: 01/09/23 15:56 Dose: 200 mls/hr Insulin Aspart (Insulin Aspart (*Bkc) 100 Units/Ml) 4 units 0.05 units/kg (4 units) SUB-Q TIDWM [facility] Last Admin: 01/09/23 18:23 Dose: 4 units Insulin Aspart (Insulin Aspart (*Bkc) 100 Units/Ml) 3 - 6 units SUB-Q Q6HR [facility]; Protocol Levothyroxine Sodium (Levothyroxine Sodium 100 Mcg Tablet) 100 mcg PO DAILY@0630 [facility] Last Admin: 01/10/23 09:06 Dose: 100 mcg Losartan Potassium (Losartan Potassium 25 Mg Tablet) 25 mg PO DAILY [facility] Last Admin: 01/10/23 09:06 Dose: 25 mg Morphine Sulfate (Morphine Sulfate (*Crx) 2 Mg/Ml Inj) 2 mg IV PUSH Q5M PRN PRN Reason: Pain Rated 4-6 Ondansetron HCl (Ondansetron Inj 4 Mg/2 Ml Vial) 2 mg IV PUSH Q6H PRN PRN Reason: Nausea And Vomiting Last Admin: 01/09/23 19:20 Dose: 2 mg Sedation/Anesthesia: No previous sedation/anesthesia problems (including family history). [facility] Past Medical History Medical History (Updated 01/10/23 @ 09:09 by Eric Zaragoza MD) Colon cancer Hypertension associated with diabetes Social History Social History Alcohol intake: never Substance use: never Lack of Transportation: No Lack of Food: Never True Current Housing: I Have Housing Concerned About Future Housing: No Difficulty Paying Gas/Electric Bills: No Difficulty Paying for Meds: No Currently Unemployed: No Education: High School Diploma/GED Difficulty w/ Childcare or Family Care: No Spiritual care concerns: No Mod Sed Physical Exam Physical Exam Pre Procedural Exam: Normal: Airway Hours since solid food
--- NOTE | 2023-01-10 10:18 | WPDCARDPROC ---
Cardiac Cath Procedure Note Date of procedure:: 01/10/23 Performing physician:: Eric Zaragoza MD Procedure Procedure performed:: LEFT HEART CATHETERIZATION AND CORONARY ANGIOGRAM REPORT DATE OF PROCEDURE: 01/10/2023 INDICATION FOR PROCEDURE: Non ST-elevation myocardial infarction BRIEF CLINICAL HISTORY: 77-year-old female with known CAD, history of PCI/ stenting in 2009 at [facility] -intervention report not available; CHF with preserved ejection fraction, hypertension, diabetes mellitus, CLL, history of cryptogenic meningitis, history of COVID-19 pneumonia. Patient presented to [facility] Emergency Room on 01/09/2023 with complaints of substernal chest pain associated with shortness of breath, nausea and vomiting. Her symptoms last for about 2 hours. EKG showed Sinus rhythm, ST depression suggestive of ischemia. Troponins elevated (peak troponin level of 8.7 which is trending downwards,) consistent with non ST elevation PR. Last night, patient had episodes of sinus pause up to 7 seconds when she was in the bathroom and had episodes of nausea. She was transferred to the ICU for observation. Overnight she was hemodynamically stable. Patient was willing to proceed with coronary angiogram. Benefits and risks of the procedure were discussed with the patient in depth, and informed consent was obtained prior to the procedure. Risks of the procedure include but are not limited to vascular complications including groin hematoma, retroperitoneal bleed, vessel perforation; periprocedural PR, cardiac arrhythmias, stroke, contrast induced nephropathy, and . After discussing all the benefits, risks and alternatives, patient was willing to proceed with the procedure. PROCEDURES PERFORMED: 1. Left heart catheterization- Selective left and right coronary angiogram; LV pressure measurement and hemodynamic assessment 2. Right common femoral access with ultrasound guidance 3. Deployment of Mynx hemostatic device 4. Moderate sedation-CPT code 55946 MODERATE SEDATION: Midazolam 1 mg; fentanyl 25 mcg; Start time 0934 , Stop time 1002 ; Total [id number] time 28 minutes; Bianca Prater RN was trained observer for moderate sedation. ACCESS SITE: Right common femoral artery PROCEDURE NOTE: After obtaining informed consent, patient was brought to catheterization lab and prepped and draped in a usual sterile manner. After local anesthesia with lidocaine, right common femoral artery access was taken with micropuncture needle under ultrasound guidance followed by insertion of a 5 Iranian sheath. Selective left and right coronary angiogram was performed using 5 Iranian JL4 and JR4 catheters respectively. Orthogonal views were taken. The JR4 catheter was advanced in the LV cavity and was flushed with normal saline. LV pressure measurement was performed. Left ventriculogram was not performed due to patient's renal insufficiency. Echocardiogram during hospitalization showed preserved LV systolic function. The gradient across the aortic valve was measured on the pullback of the catheter. Finally, Mynx vascular closure device was deployed. Patient tolerated procedure well without any immediate procedure related complications. FINDINGS: LEFT MAIN CORONARY: a medium caliber vessel, no angiographically significant focal stenosis. The vessel bifurcates into LAD and left circumflex branches. LEFT ANTERIOR DESCENDING ARTERY: Medium caliber vessel . There appears to be stent in proximal LAD versus calcification with moderate about 50 -60% diffuse stenosis. There is high-grade about 90-95% stenosis in the mid LAD distal to the major diagonal branch. The remainder of the mid LAD is tortuous, and becomes diminutive vessel in the distal segment. Major diagonal branch is a medium caliber vessel with about 50-60% stenosis in the proximal segment. LEFT CIRCUMFLEX ARTERY: Medium to large caliber vessel with diffuse disease. The
[2023-01-10] MEDS: SODIUM CHLORIDE 0.9% IV 1,000 ML 125 ML IV CONT (10:34)
[2023-01-10] MEDS: DOXYCYCLINE HYCLATE 100 MG TABLET PO (10:46)
[2023-01-10] MEDS: cefTRIAXone 2 GM/NS 100 ML 2 GM/100 ML BAG IVPB (10:47)
--- NOTE | 2023-01-10 11:05 | WPDCNINT ---
Assessment and Plan Assessment and plan (1) NSTEMI (non-ST elevated myocardial infarction): Code(s): I21.4 - Non-ST elevation (NSTEMI) myocardial infarction Status: Acute Assessment and Plan: Patient presented with chest pain on 01/09/2023, EKG showed ST depression, troponins peaked at 8.7 -patient was started on therapeutic Lovenox x1 dose -overnight patient had lightheadedness, nausea, dizziness and sinus pause of 7 seconds and was transferred to the ICU. Her Coreg was held -01/10: She did have a coronary angiogram this morning which showed multivessel coronary artery disease, 50-60% stenosis of proximal LAD, high-grade 90-95% stenosis mid LAD distal to the diagonal branch. 50-70% stenosis proximal mid segment of left circumflex. About 95% stenosis of mid RCA, patent proximal RCA stent. Elevated LVEDP at 25 mmHg, LV systolic function preserved on echocardiogram performed during this hospitalization. Patient has been recommended for surgical revascularization -cardiology will arrange for transfer to [facility] (2) Uncontrolled type 2 diabetes mellitus: Status: Acute Assessment and Plan: Continue moderate dose sliding scale insulin and Accu-Chek she is also on 4 units of aspart with meals (3) Acute renal failure: Code(s): N17.9 - Acute kidney failure, unspecified Status: Acute Assessment and Plan: Patient with acute kidney injury likely related to NSTEMI, could also be related to diabetes and hypertension - status post IV fluids -creatinine trending down -continue to monitor (4) Essential hypertension: Code(s): I10 - Essential (primary) hypertension Status: Acute Assessment and Plan: Continue losartan, Coreg currently on hold (5) Pneumonia: Qualifiers: Laterality: bilateral Lung location: unspecified part of lung Pneumonia type: due to unspecified organism Qualified Code(s): J18.9 - Pneumonia, unspecified organism Code(s): J18.9 - Pneumonia, unspecified organism Status: Inactive Assessment and Plan: Chest x-ray showed bilateral airspace opacities, elevated white count, patient was started on ceftriaxone and doxycycline -patient did have complaint of congestion and cough which has been ongoing for 2-3 weeks Plan DVT prophylaxis: Lovenox Stress ulcer prophylaxis: Not indicated Nutrition: Heart healthy and renal diet Code Status: Full code Critical Care Time Spent: 49 minutes Discuss with cook fast food Due to a high probability of clinically significant, life threatening deterioration, the patient required my highest level of preparedness to intervene emergently and I personally spent this critical care time directly and personally managing the patient. This critical care time included obtaining a history; examining the patient; pulse oximetry; ordering and review of studies; arranging urgent treatment with development of a management plan; evaluation of patient's response to treatment; frequent reassessment; and discussions with other providers. It was exclusive of separately billable procedures and treating other patients and teaching time. Please see Assessment and Plan section and the rest of the note for further information on patient assessment and treatment This dictation may have been done utilizing a voice recognition system. Attempts have been made to correct errors. However, there may be uncorrected grammatical, spelling, and recognitions errors present. Parking Meter Attendant Consult Note Consult date: 01/10/23 Reason for consult: NSTEMI, sinus pause of 7 seconds, lightheadedness, nausea, status post coronary angiogram which showed stents in the RCA and LAD along with multivessel coronary artery disease. HPI: Shaguftajeffrey Oakley is a 77 year old female presented the hospital on 01/09/2023 with complains of chest pain that started in the afternoon of the day of admission. Patient had substernal chest pain which was nonrad
[2023-01-10] MEDS: INSULIN ASPART (*BKC) 100 UNITS/ML SUB-Q ×2 (12:02)
[2023-01-10 12:03] LABS: Glucose Point of Care 207 mg/dl (65-105)
--- NOTE | 2023-01-10 15:58 | PM.TDS ---
Transfer Discharge Sum: Prov Provider Date of admission: 01/09/23 11:21 Primary care physician: Phuc Linton, Admitting clinician: Waylon Bledsoe MD Consults: 01/09/23 Consult to Physician Routine Comment: Consulting Provider: Jaquan Bell Reason for consultation: Pauses Has provider been notified: Yes 01/09/23 11:23 Consult to Physician Routine Comment: Consulting Provider: Eric Zaragoza Reason for consultation: NSTEMI Has provider been notified: Yes 01/09/23 12:21 Cardiopulmonary Rehabilitation Consult Routine Comment: Consult Plan: Evaluate for Eligibility DS: Admitting Diagnosis Discharge Date 01/10/23 Admitting Diagnosis (1) NSTEMI (non-ST elevated myocardial infarction): ?Code(s): I21.4 - Non-ST elevation (NSTEMI) myocardial infarction ?Status:?Acute (2) Hypertensive urgency: ?Code(s): I16.0 - Hypertensive urgency ?Status:?Acute (3) Acute renal failure: ?Code(s): N17.9 - Acute kidney failure, unspecified ?Status:?Acute (4) Community acquired pneumonia due to influenza A virus: ?Code(s): J09.X1 - Influenza due to identified novel influenza A virus with pneumonia ?Status:?Acute (5) Uncontrolled type 2 diabetes mellitus: ?Status:?Acute DS: Discharge Diagnosis Discharge Diagnosis (1) NSTEMI (non-ST elevated myocardial infarction): Code(s): I21.4 - Non-ST elevation (NSTEMI) myocardial infarction Status: Acute (2) Hypertensive urgency: Code(s): I16.0 - Hypertensive urgency Status: Acute (3) Acute renal failure: Code(s): N17.9 - Acute kidney failure, unspecified Status: Acute (4) Community acquired pneumonia due to influenza A virus: Code(s): J09.X1 - Influenza due to identified novel influenza A virus with pneumonia Status: Acute (5) Uncontrolled type 2 diabetes mellitus: Status: Acute (6) Sick sinus syndrome: Code(s): I49.5 - Sick sinus syndrome Status: Acute Plan ? Transfer Discharge Sum: Med Medications Active and Home Medications: Home Medications aspirin 81 mg tablet,delayed release 81 mg PO DAILY 01/09/23 [History Confirmed 01/09/23] atorvastatin 40 mg tablet 40 mg PO DAILY 01/09/23 [History Confirmed 01/09/23] carvedilol 25 mg tablet 25 mg PO BID 01/09/23 [History Confirmed 01/09/23] insulin glargine 100 unit/mL (3 mL) subcutaneous pen (Lantus Solostar U-100 Insulin) 5 unit subcut QHS 01/09/23 [History Confirmed 01/09/23] insulin glargine 100 unit/mL (3 mL) subcutaneous pen (Lantus Solostar U-100 Insulin) 7 unit subcut QAM 01/09/23 [History Confirmed 01/09/23] insulin lispro 100 unit/mL subcutaneous pen 5 unit subcut TIDWM 01/09/23 [History Confirmed 01/09/23] levothyroxine 100 mcg tablet 100 mcg PO DAILY 01/09/23 [History Confirmed 01/09/23] spironolactone 25 mg tablet 25 mg PO DAILY 01/09/23 [History Confirmed 01/09/23] torsemide 20 mg tablet 20 mg PO DAILY 01/09/23 [History Confirmed 01/09/23] Transfer Discharge Sum: Hosp Hospital Course Hospital course: 75 years old lady with history of CAD, status post stent, hypertension, diabetes, present ED with a chief complaint of chest pain.? Patient started have chest pain last night, locating left chest, lasts about 30 minutes.? Since then patient has intermittent chest pain, patient has some shortness breath.? Patient has a mild cough.? Denies fever, chills, abdomen pain, nausea vomiting diarrhea.? But patient had diarrhea about 3 days ago.? Patient has worsening cough is possibly more days, with scant phlegm.? EMS was called, patient was brought to ED for evaluation.? In the ED, patient was found have uncontrolled blood pressure, 187/75, tachycardia, tachypnea, patient received labetalol IV push in the ED. in the ED, patient was also found to have elevated BUN creatinine 48/1.7 above baseline 12.1 double found 2020, no recent creatinine level for comparison, uncontrolled diabetes glu
--- NOTE | 2023-01-12 14:38 | IVDEFINITY ---
Prior to administration of IV Definity the patient was educated on the risks and benefits of the imaging enhancing agent including potential adverse side effects. The patient verbalized understanding. Allergies were verified. No exclusion criteria were identified and at least one of the following inclusion criteria were met: 1) physician request, 2) patient technically difficult to image (per the [place] [employer] guidelines of two or more segments not discernable within the apical view), or 3) questionable left ventricular function. ?
== END 2023-01-10 14:09 | disposition short-term general hospital (02) | DRG 280 ==
LOC: ANHED 07:52 → ANHIMU 11:47 → ANHICU 19:09
PROVIDERS: Emergency Medicine; Internal Medicine; Internal Medicine Cardiovascular Disease; Admitting Provider Hospitalist; Emergency Provider Emergency Medicine; PCP Internal Medicine; Visit Provider Hospitalist
PROC: 4A023N7 Measurement of Cardiac Sampling and Pressure, Left Heart, Percutaneous Approach (ICD-10-PCS; CPT 93452; principal; 2023-01-10 09:00)
PROC: 4A023N7 Measurement of Cardiac Sampling and Pressure, Left Heart, Percutaneous Approach (ICD-10-PCS; 2023-01-10 09:00)
DX: I21.4 Non-ST elevation (NSTEMI) myocardial infarction (principal); J18.9 Pneumonia, unspecified organism; N17.9 Acute kidney failure, unspecified; I13.0 Hypertensive heart and chronic kidney disease with heart failure and stage 1 through stage 4 chronic kidney disease, or unspecified chronic kidney disease; I50.32 Chronic diastolic (congestive) heart failure; C91.10 Chronic lymphocytic leukemia of B-cell type not having achieved remission; I25.10 Atherosclerotic heart disease of native coronary artery without angina pectoris; I49.5 Sick sinus syndrome; I16.0 Hypertensive urgency; E11.65 Type 2 diabetes mellitus with hyperglycemia; E11.22 Type 2 diabetes mellitus with diabetic chronic kidney disease; N18.9 Chronic kidney disease, unspecified; Z79.4 Long term (current) use of insulin; Z79.82 Long term (current) use of aspirin; Z95.5 Presence of coronary angioplasty implant and graft
CPT/HCPCS: 36415; 71045; 71046; 80053; 80061; 82310; 82948; 83690; 83735; 84100; 84484; 85025; 85610; 85730; 93005; 93458; 96361; 96374; 96375; 99285; A9270; C1760; C1887; C1894; C8929; C9113; G0269; J0360; J0461; J0696; J1644; J1650; J1815; J2250; J2270; J2305; J2405; J3010; J7030; J7040; Q9957

== ENCOUNTER 2023-04-05 21:11 | Emergency (ER) | payer MEDICARE, SELFPAY ==
--- NOTE | ~2023-04-05 | XR_ITS ---
EXAMINATION: XR chest 2V DATE: 04/05/2023 21:54 INDICATION: Left-sided chest pain TECHNIQUE: PA and lateral views of the chest were obtained. COMPARISON: Chest radiograph dated 01/10/2023 01/13/2021 FINDINGS: Relatively stable appearance of chronic streaky and bandlike bilateral airspace opacities with periph eral and lower lung predominance. No definitively new airspace opacities, pleural effusion or pneumot horax. Heart size is normal. Cholecystectomy clips in right upper quadrant. Old fracture at the left humeral neck with plate and screw fixation. IMPRESSION: 1. Stable appearance of peripheral predominant opacities in bilateral mid and lower lung zones most l ikely related to chronic lung disease. Reviewed, dictated and finalized at location A. MAN IMPRESSION: 1. Stable appearance of peripheral predominant opacities in bilateral mid and l ower lung zones most likely related to chronic lung disease.
--- NOTE | 2023-04-05 21:12 | ECG_ITS ---
Measurements Intervals [place] Rate: 70 P: 30 NE: 155 QRS: 2 QRSD: 98 T: 49 QT: 418 QTc: 452 Interpretive Statements SINUS RHYTHM BORDERLINE ST ABNORMALITY- LAT/HIGH LAT LEADS BASELINE ARTIFACT- I, III, AVL BORDERLINE ECG COMPARED TO ECG 01/09/2023 19:43:09 NO SIGNIFICANT CHANGES Electronically Signed On 04-06-2023 5:53:51 GIS MAPPING TECHNICIAN by Cedric Scott D.O.
[2023-04-05 21:17] VITALS: BP 179/59; PULSE 73; RESP 14; TEMP 36.3; O2SAT 97
[2023-04-05 21:40] LABS: Basophils Percent Auto 0.3 % (0.2-1.2); Eosinophils Absolute Auto 0.3 K/mm3 (0-0.3); Eosinophils Percent Auto 3.4 % (0-4.4); Hematocrit 34.5 % (37.0-47.0); Immature Granulocyte Absolute 0.01 K/mm3 (0.00-0.031); Immature Granulocyte Percent A 0.1 % (0-0.5); Lymphocytes Percent Auto 59.7 % (18.3-44.2); Mean Corpuscular Hemoglobin 27.2 pg (26-34); Mean Platelet Volume 11.8 fl (7.4-10.4); Monocytes Absolute Auto 0.6 K/mm3 (0.1-0.6); Monocytes Percent Auto 6.3 % (2.6-8.5); Neutrophils Absolute Auto 2.6 K/mm3 (1.3-6.7); Neutrophils Percent Auto 30.2 % (45.5-73.1); Platelet Count Result 168 k/mm3 (150-375); Red Blood Count 3.67 M/mm3 (4.2-5.4); Red Cell Distribution Width 19.9 % (11.5-14.5); White Blood Count 8.7 K/mm3 (4.5-10.0)
[2023-04-05 21:52] LABS: INR 1.1; Prothrombin Time 14.3 Seconds (11.1-14.7)
[2023-04-05 21:53] LABS: Alanine Aminotransferase 12 U/L (6-35); Albumin Level 3.8 g/dL (3.5-5.1); Alkaline Phosphatase 150 U/L (38-126); Anion Gap 12 mmol/L (8-16); Aspartate Amino Transferase 20 U/L (14-36); Bilirubin,Total 0.6 mg/dL (0.2-1.3); Blood Urea Nitrogen 42 mg/dL (7-17); Calcium 8.2 mg/dL (8.4-10.2); Carbon Dioxide 24 mmol/L (22-30); Chloride 104 mmol/L (98-107); Estimated CRCL calculation 26 ml/min; Estimated Glomerular Filt Rate 31; Glucose 184 mg/dL (65-110); Lipase 252 U/L (23-300); Partial Thromboplastin Time 29.1 SECONDS (22.3-36.8); Sodium 140 mmol/L (137-145)
[2023-04-05 22:02] LABS: Troponin I < 0.012 ng/mL (0.000-0.034)
[2023-04-05 22:05] LABS: Platelet Estimate Adequate (Adequate)
[2023-04-05 22:06] LABS: Anisocytosis 1+ (NORMAL); Burr Cells 1+ (NORMAL); Ovalocytes 1+ (NORMAL); Poikilocytosis 1+ (NORMAL); Schistocytes None Seen (NORMAL)
[2023-04-05 22:14] LABS: Glucose Point of Care 231 mg/dl (65-105)
--- NOTE | 2023-04-05 22:20 | ED.GENADULT ---
HPI - General Adult General Chief complaint: Chest Pain Stated complaint: chest pain Time Seen by Provider: 04/05/23 21:54 History of Present Illness HPI narrative: patient is a 77-year-old female presents emergency department with chief complaint of chest pain patient reports she has prior history of cardiac disease [facility] patient reports that she had a aching sensation in the left anterior portion of her chest patient reports the pain is not exacerbated by exertion reports that the pain does not radiate denies diaphoresis denies shortness of breath. Related Data Home Medications Medication Instructions Recorded Confirmed aspirin 81 mg tablet,delayed 81 mg PO DAILY 01/09/23 04/06/23 release atorvastatin 40 mg tablet 40 mg PO DAILY 01/09/23 04/06/23 carvedilol 25 mg tablet 25 mg PO BID 01/09/23 04/06/23 insulin glargine 100 unit/mL (3 5 unit subcut QHS 01/09/23 04/06/23 mL) subcutaneous pen (Lantus Solostar U-100 Insulin) insulin glargine 100 unit/mL (3 7 unit subcut QAM 01/09/23 04/06/23 mL) subcutaneous pen (Lantus Solostar U-100 Insulin) insulin lispro 100 unit/mL 5 unit subcut TIDWM 01/09/23 04/06/23 subcutaneous pen levothyroxine 100 mcg tablet 100 mcg PO DAILY 01/09/23 04/06/23 spironolactone 25 mg tablet 25 mg PO DAILY 01/09/23 04/06/23 torsemide 20 mg tablet 40 mg PO DAILY 01/09/23 04/06/23 cholecalciferol (vitamin D3) 1,250 50,000 unit PO 2XW 04/06/23 04/06/23 mcg (50,000 unit) capsule clopidogrel 75 mg tablet 75 mg PO DAILY 04/06/23 04/06/23 isosorbide mononitrate 30 mg 30 mg PO DAILY 04/06/23 04/06/23 tablet,extended release 24 hr Allergies Allergy/AdvReac Type Severity Reaction Status Date / Time amlodipine Allergy Unknown Verified 04/05/23 21:22 Review of Systems Review of Systems: A 10 system review of systems was completed on the patient and is negative except for what is stated in the HPI. Nursing and ancillary documentation was reviewed. [facility] Past Medical History Medical History Colon cancer Hypertension associated with diabetes Pneumonia Social History Social History Alcohol intake: never Substance use: never Lack of Transportation: No Lack of Food: Never True Current Housing: I Have Housing Concerned About Future Housing: No Difficulty Paying Gas/Electric Bills: No Difficulty Paying for Meds: No Currently Unemployed: No Education: High School Diploma/GED Difficulty w/ Childcare or Family Care: No Spiritual care concerns: No Exam Narrative: GENERAL: Well-appearing, well-nourished, and in no acute distress. HEAD: Normocephalic, atraumatic. EYES: PERRLA and EOMI. ENT: Nares clear, no rhinorrhea or epistaxis. Mucous membranes moist. NECK: Supple. CHEST: Clear to auscultation. No respiratory distress. HEART: Regular rate and rhythm. No murmur heard. Normal peripheral pulses. ABDOMEN: Soft, nontender, nondistended, normal active bowel sounds. EXTREMITIES: Normal range of motion. No edema. SKIN: Warm, dry, no rash. NEURO: No focal deficits. Alert and oriented x3. PSYCH: Normal mood and affect. Course Vital Signs Vital signs: Vital Signs Temperature 36.3 C L 04/05/23 21:17 Pulse Rate 73 04/05/23 21:17 Respiratory Rate 14 04/05/23 21:17 Blood Pressure 179/59 H 04/05/23 21:17 Pulse Oximetry 97 04/05/23 21:17 Oxygen Delivery Room Air 04/05/23 21:17 Temperature 36.3 C L 04/05/23 21:17 Pulse Rate 70 04/06/23 06:39 Respiratory Rate 16 04/06/23 06:39 Blood Pressure 159/55 H 04/06/23 06:39 Pulse Oximetry 95 04/06/23 06:39 Oxygen Delivery Nasal Cannula 04/06/23 03:55 Oxygen Flow Rate 2 04/06/23 03:55 Medical Decision Making MDM Narrative Medical decision making narrative: The differential diagnosis includes ACS, atypical chest pain,
[2023-04-05 23:47] VITALS: PULSE 73
--- NOTE | 2023-04-06 00:47 | ECG_ITS ---
Measurements Intervals [place] Rate: 73 P: 41 FL: 158 QRS: 8 QRSD: 94 T: 51 QT: 416 QTc: 461 Interpretive Statements SINUS RHYTHM BORDERLINE ST ABNORMALITY- LAT/HIGH LAT LEADS BORDERLINE ECG COMPARED TO ECG 04/05/2023 21:28:06 NO SIGNIFICANT CHANGES Electronically Signed On 04-06-2023 5:55:55 DIRECTOR SOCIAL SERVICE by Cedric Scott D.O.
[2023-04-06 01:04] LABS: Glucose Point of Care 294 mg/dl (65-105)
[2023-04-06 01:25] LABS: NT Pro B Type Natriuretic Pept 1190 pg/mL (19.9-100)
[2023-04-06 01:28] LABS: Troponin I < 0.012 ng/mL (0.000-0.034)
[2023-04-06 01:40] VITALS: BP 186/70; PULSE 78; RESP 15; O2SAT 94
[2023-04-06 03:54] VITALS: BP 174/58; PULSE 75; RESP 20; O2SAT 88
[2023-04-06 03:55] VITALS: O2SAT 96
[2023-04-06] MEDS: INSULIN GLARGINE (*BKC) 100 UNITS/ML SUB-Q (04:44)
[2023-04-06 04:48] LABS: Glucose Point of Care 339 mg/dl (65-105)
[2023-04-06 05:02] VITALS: BP 187/66; PULSE 79; PULSE 81; RESP 15; O2SAT 95
[2023-04-06] MEDS: carvediloL 25 MG TABLET PO (05:02)
[2023-04-06 05:24] LABS: Troponin I < 0.012 ng/mL (0.000-0.034)
[2023-04-06 06:08] LABS: Glucose Point of Care 326 mg/dl (65-105)
[2023-04-06] MEDS: INSULIN GLARGINE (*BKC) 100 UNITS/ML 7 UNITS SUB-Q (06:16)
[2023-04-06 06:39] VITALS: BP 159/55; PULSE 70; RESP 16; O2SAT 95
== END 2023-04-06 06:53 | disposition home or self-care (01) ==
PROVIDERS: Student in an Organized Health Care Education/Training Program; Emergency Provider Emergency Medicine; PCP Internal Medicine
DX: R07.89 Other chest pain (principal); I25.2 Old myocardial infarction; E11.9 Type 2 diabetes mellitus without complications; I15.2 Hypertension secondary to endocrine disorders; I50.9 Heart failure, unspecified; Z85.038 Personal history of other malignant neoplasm of large intestine; Z87.01 Personal history of pneumonia (recurrent); Z79.82 Long term (current) use of aspirin; Z79.4 Long term (current) use of insulin; R94.31 Abnormal electrocardiogram [ECG] [EKG]
CPT/HCPCS: 36415; 71046; 80053; 82948; 83690; 83880; 84484; 85025; 85610; 85730; 93005; 99284; A9270; J1815